=== PATIENT | male | born 1970 | race Caucasian/White ===

== ENCOUNTER 2016-06-01 19:33 | Emergency (ER) | payer OTHER ==
--- NOTE | 2016-06-01 21:50 | REPUSA ---
CLINICAL HISTORY: Edema. COMMENTS: Real time sonography with duplex doppler of the right lower extremity was performed with attention to the major deep venous structures. Evaluation reveals the right common femoral, superficial femoral and popliteal veins to be completely compressible without intraluminal thrombus. There is normal spontaneous phasic flow and augmentation . The greater saphenous/common femoral vein junction is patent. IMPRESSION: No evidence of DVT in right lower extremity. Thank you for your kind referral of this patient.
--- NOTE | 2016-06-01 22:00 | EDDOCDS ---
Physician Documentation [facility] Name: Nitish Quintanilla Age: 45 yrs Sex: Male : 1970 Arrival Date: 06/01/2016 Time: 19:33 Bed PR Private MD: Chelita Camargo Disposition: 06/01/16 21:48 Discharged to Home/Self Care. Impression: Contusion of right foot. - Condition is Stable. - Discharge Instructions: Elastic Bandage and RICE, Foot Contusion. - Medication Reconciliation, Local Pharmacy Hours form. - Follow up: Chelita Camargo; When: As needed; Reason: Recheck today's complaints, Continuance of care. Follow up: Emergency Department; When: As needed; Reason: Worsening of conditions. - Problem is new. - Symptoms are unchanged. Historical: - Allergies: No known drug Allergies; - Home Meds: 1. atenolol 50 mg Oral tab 1 tab once daily 2. Prevacid 15 mg Oral cpDR 1 cap once daily 3. Zyrtec 10 mg Oral tab 1 tab once daily - PMHx: GERD; Hypertension; Seasonal Allergies; - PSHx: skin graft to left foot; Appendectomy; Tonsillectomy; wisdom teeth; right ankle; - Social history: Smoking status: Patient states was never smoker of tobacco. No barriers to communication noted, The patient speaks fluent [place]inean. - Family history: Not pertinent. - : The pt / caregiver states he / she is not on anticoagulants. Home medication list is obtained from the patient. - Exposure Risk Screening:: None identified. Vital Signs: 06/01 19:35 BP 148 / 81; Pulse 55; Resp 18 S; Temp 97.2(O); Pulse Ox 98% on R/A; Weight 133.36 kg / gr2 294.01 lbs (R); Height 6 ft. 2 in. (187.96 cm) (R); Pain 4/10; 21:52 BP 136 / 84 RA Sitting (auto/reg); Pulse 69 MON; Resp 20 S; Temp 98.3(TE); Pulse Ox 96% cln on R/A; Pain 0/10; 19:35 Body Mass Index 37.75 (133.36 kg, 187.96 cm) gr2 MDM: 20:14 US Lower Extremity R/O DVT Ordered. EDMS 20:15 Financial registration complete. gjb 20:52 [facility] Payment Agreement was scanned into [employer] and attached to record. shashi Signatures: Dispatcher [employer] EDMS Dillon Davis PA-C PA-C ar2 Shital Mccallum,RN RN ld5 Patrizia JessicaRN RN af2 Gabriela Noriega The chart was reviewed and I authenticate all verbal orders and agree with the evaluation and treatment provided.Attachments: 20:52 [facility] Payment Agreement gjb MTDD
--- NOTE | 2016-06-01 22:00 | EDDOCDS ---
Nurse's Notes [facility] Name: Nitish Quintanilla Age: 45 yrs Sex: Male : 1970 Arrival Date: 06/01/2016 Time: 19:33 Bed PR2 Private MD: Chelita Camargo Diagnosis: Contusion of right foot Presentation: 06/01 19:38 Presenting complaint: Patient states: swelling of right foot and ankle related to af2 object falling on foot, referred by urgent care for possible blood clot. The patients lower extremity appears normal on examination. Adult Sepsis Screening: The patient does not have new or worsening altered mentation. Patient's respiratory rate is less than 22. Systolic blood pressure is greater than 100. Patient has a qSOFA score of 0- Negative Sepsis Screen. Suicide/Homicide risk assessment- the patient denies having any suicidal and/or homicidal ideations and does not present with any other emotional, behavioral or mental health complaints. Status: Patient is not a legal services manager or dependent. Transition of care: patient was not received from another setting of care. 19:38 Acuity: CHUNG Level 3 af2 19:38 Method Of Arrival: Walkin/Carried/Asstd af2 Triage Assessment: 19:41 General: Appears in no apparent distress, Behavior is appropriate for age, cooperative, af2 pleasant. Pain: Denies pain. Pt Declines HIV testing. Musculoskeletal: Reports swelling to right foot and ankle. Historical: - Allergies: No known drug Allergies; - Home Meds: 1. atenolol 50 mg Oral tab 1 tab once daily 2. Prevacid 15 mg Oral cpDR 1 cap once daily 3. Zyrtec 10 mg Oral tab 1 tab once daily - PMHx: GERD; Hypertension; Seasonal Allergies; - PSHx: skin graft to left foot; Appendectomy; Tonsillectomy; wisdom teeth; right ankle; - Social history: Smoking status: Patient states was never smoker of tobacco. No barriers to communication noted, The patient speaks fluent Nepali. - Family history: Not pertinent. - : The pt / caregiver states he / she is not on anticoagulants. Home medication list is obtained from the patient. - Exposure Risk Screening:: None identified. Screenin:57 Screening information is obtained from the patient. Fall risk: No risks identified. ld5 Assistance ADL's: requires no assistance with activities of daily living. Abuse/DV Screen: The patient / caregiver reports he/she is: not in a situation that causes fear, pain or injury. Nutritional screening: No deficits noted. Advance Directives: There is no active DNR order. home support is adequate. Assessment: 21:57 General: Appears in no apparent distress. General: First contact with pt. Pain: Denies ld5 pain. Neurological: Level of Consciousness is awake, alert. Respiratory: Airway is patent Respiratory effort is even, unlabored. Musculoskeletal: Range of motion intact in all extremities. No deformity noted Signs and Symptoms of Compartment Syndrome: no signs of compartment syndrome. Vital Signs: 19:35 BP 148 / 81; Pulse 55; Resp 18 S; Temp 97.2(O); Pulse Ox 98% on R/A; Weight 133.36 kg gr2 (R); Height 6 ft. 2 in. (187.96 cm) (R); Pain 4/10; 21:52 BP 136 / 84 RA Sitting (auto/reg); Pulse 69 MON; Resp 20 S; Temp 98.3(TE); Pulse Ox 96% cln on R/A; Pain 0/10; 19:35 Body Mass Index 37.75 (133.36 kg, 187.96 cm) gr2 Vitals: 19:35 Log In Time: June 01, 2016 at 19:35. gr2 ED Course: 19:35 Patient visited by Malinda Olivera. gr2 19:35 Chelita Camargo is Private Physician. gr2 19:35 Patient moved to Waiting gr2 19:36 Patient visited by Malinda Olivera. gr2 19:36 Patient moved to Pre RCE gr2 19:40 Triage Initiated af2 19:42 Patient visited by Patrizia Jessica RN. af2 20:07 [facility]. ar2 20:07 Edouard Stratton DO is Attending Physician. ar2 20:07 Patient visited by Dillon Davis PA-C. ar2 20:07 Patient moved to Triage 2 cln 20:13 Patient moved to TR4 mb9 20:52 [facility] Payment Agreement was scanned into [employer] and attached to record. gjb 20:59 Patient moved to Ultrasound dmg 21:23 Patient moved to TR4 dmg 21:44 Patient moved to PR2 / cln 21:48 Chelita Camargo is Referral Physician. ar2 21:52 Patient visited by Mary Franco PCA. cln 21:57 The patient / caregiver is instructed regarding the plan of care and ED course. ld5 21:57 No IV's were initiated during this patient's visit. No procedures done that require ld5 assistance. 21:59 Patient visited by Shital Mccallum RN. ld5 Order Results: There are currently no results for this order. Outcome: 21:48 Discharge ordered by Provider. ar2 21:57 Discharge Assessment: Patient awake, alert and oriented x 3. No cognitive and/or ld5 functional deficits noted. Patient verbalized understanding of disposition instructions. patient administered narcotics - no. The following High Risk Discharge criteria are identified: None. Discharged to home ambulatory. Condition: stable. Discharge instructions given to patient, Instructed on discharge instructions, follow up and referral plans. Demonstrated understanding of instructions, Pt was receptive of discharge instructions/ teaching. No special radiology studies were completed. Property :Personal belongings accompany Pt. 21:58 Patient left the ED. ld5 Signatures: Billie Garcia Aaron, PA-Jameel PA-C ar2 Shital Mccallum,RN RN ld5 Malinda Olivera gr2 Gianfranco Brown,RN RN mb9 Patrizia Jessica RN RN af2 Gabriela Noriega [facility] Mary Franco PCA [employer] cln MTDD
--- NOTE | 2016-06-03 23:00 | EDDOCDS ---
Physician Documentation [facility] Name: Nitish Quintanilla Age: 45 yrs Sex: Male : 1970 Arrival Date: 06/01/2016 Time: 19:33 Bed PR Private MD: Chelita Camargo Disposition: 06/01/16 21:48 Discharged to Home/Self Care. Impression: Contusion of right foot. - Condition is Stable. - Discharge Instructions: Elastic Bandage and RICE, Foot Contusion. - Medication Reconciliation, Local Pharmacy Hours form. - Follow up: Chelita Camargo; When: As needed; Reason: Recheck today's complaints, Continuance of care. Follow up: Emergency Department; When: As needed; Reason: Worsening of conditions. - Problem is new. - Symptoms are unchanged. Historical: - Allergies: No known drug Allergies; - Home Meds: 1. atenolol 50 mg Oral tab 1 tab once daily 2. Prevacid 15 mg Oral cpDR 1 cap once daily 3. Zyrtec 10 mg Oral tab 1 tab once daily - PMHx: GERD; Hypertension; Seasonal Allergies; - PSHx: skin graft to left foot; Appendectomy; Tonsillectomy; wisdom teeth; right ankle; - Social history: Smoking status: Patient states was never smoker of tobacco. No barriers to communication noted, The patient speaks fluent Cymro. - Family history: Not pertinent. - : The pt / caregiver states he / she is not on anticoagulants. Home medication list is obtained from the patient. - Exposure Risk Screening:: None identified. Vital Signs: 06/01 19:35 BP 148 / 81; Pulse 55; Resp 18 S; Temp 97.2(O); Pulse Ox 98% on R/A; Weight 133.36 kg / gr2 294.01 lbs (R); Height 6 ft. 2 in. (187.96 cm) (R); Pain 4/10; 21:52 BP 136 / 84 RA Sitting (auto/reg); Pulse 69 MON; Resp 20 S; Temp 98.3(TE); Pulse Ox 96% cln on R/A; Pain 0/10; 19:35 Body Mass Index 37.75 (133.36 kg, 187.96 cm) gr2 MDM: 20:14 US Lower Extremity R/O DVT Ordered. EDMS 20:15 Financial registration complete. gjb 20:52 [facility] Payment Agreement was scanned into [employer] and attached to record. gjb 06/02 11:24 T-Sheet-- Draft Copy was scanned into [employer] and attached to record. gb Signatures: Dispatcher [employer] EDMS Minal Tracy, Reg Reg gb Dillon Davis, ELLY SANABRIA ar2 Shital MccallumRN RN ld5 Patrizia Jessica RN RN af2 Gabriela Noriega The chart was reviewed and I authenticate all verbal orders and agree with the evaluation and treatment provided.Attachments: 06/01 20:52 [facility] Payment Agreement gjb 06/02 11:24 T-Sheet-- Draft Copy gb Chart Complete MTDD
--- NOTE | 2016-06-03 23:00 | EDDOCDS ---
Physician Documentation [facility] Name: Nitish Quintanilla Age: 45 yrs Sex: Male : 1970 Arrival Date: 06/01/2016 Time: 19:33 Bed PR Private MD: Chelita Camargo Disposition: 06/01/16 21:48 Discharged to Home/Self Care. Impression: Contusion of right foot. - Condition is Stable. - Discharge Instructions: Elastic Bandage and RICE, Foot Contusion. - Medication Reconciliation, Local Pharmacy Hours form. - Follow up: Chelita Camargo; When: As needed; Reason: Recheck today's complaints, Continuance of care. Follow up: Emergency Department; When: As needed; Reason: Worsening of conditions. - Problem is new. - Symptoms are unchanged. Historical: - Allergies: No known drug Allergies; - Home Meds: 1. atenolol 50 mg Oral tab 1 tab once daily 2. Prevacid 15 mg Oral cpDR 1 cap once daily 3. Zyrtec 10 mg Oral tab 1 tab once daily - PMHx: GERD; Hypertension; Seasonal Allergies; - PSHx: skin graft to left foot; Appendectomy; Tonsillectomy; wisdom teeth; right ankle; - Social history: Smoking status: Patient states was never smoker of tobacco. No barriers to communication noted, The patient speaks fluent Luxembourger. - Family history: Not pertinent. - : The pt / caregiver states he / she is not on anticoagulants. Home medication list is obtained from the patient. - Exposure Risk Screening:: None identified. Vital Signs: 06/01 19:35 BP 148 / 81; Pulse 55; Resp 18 S; Temp 97.2(O); Pulse Ox 98% on R/A; Weight 133.36 kg / gr2 294.01 lbs (R); Height 6 ft. 2 in. (187.96 cm) (R); Pain 4/10; 21:52 BP 136 / 84 RA Sitting (auto/reg); Pulse 69 MON; Resp 20 S; Temp 98.3(TE); Pulse Ox 96% cln on R/A; Pain 0/10; 19:35 Body Mass Index 37.75 (133.36 kg, 187.96 cm) gr2 MDM: 20:14 US Lower Extremity R/O DVT Ordered. EDMS 20:15 Financial registration complete. gjb 20:52 [facility] Payment Agreement was scanned into [employer] and attached to record. gjb 06/02 11:24 T-Sheet-- Draft Copy was scanned into [employer] and attached to record. gb Signatures: Dispatcher [employer] EDMS Minal Tracy, Reg Reg gb Dillon Davis, ELLY SANABRIA ar2 Shital MccallumRN RN ld5 Patrizia Jessica RN RN af2 Gabriela Noriega The chart was reviewed and I authenticate all verbal orders and agree with the evaluation and treatment provided.Attachments: 06/01 20:52 [facility] Payment Agreement gjb 06/02 11:24 T-Sheet-- Draft Copy gb Chart Complete MTDD
--- NOTE | 2016-06-03 23:00 | EDDOCDS ---
Nurse's Notes [facility] Name: Nitish Quintanilla Age: 45 yrs Sex: Male : 1970 Arrival Date: 06/01/2016 Time: 19:33 Bed PR2 Private MD: Chelita Camargo Diagnosis: Contusion of right foot Presentation: 06/01 19:38 Presenting complaint: Patient states: swelling of right foot and ankle related to af2 object falling on foot, referred by urgent care for possible blood clot. The patients lower extremity appears normal on examination. Adult Sepsis Screening: The patient does not have new or worsening altered mentation. Patient's respiratory rate is less than 22. Systolic blood pressure is greater than 100. Patient has a qSOFA score of 0- Negative Sepsis Screen. Suicide/Homicide risk assessment- the patient denies having any suicidal and/or homicidal ideations and does not present with any other emotional, behavioral or mental health complaints. Status: Patient is not a senior field service engineer or dependent. Transition of care: patient was not received from another setting of care. 19:38 Acuity: CHUNG Level 3 af2 19:38 Method Of Arrival: Walkin/Carried/Asstd af2 Triage Assessment: 19:41 General: Appears in no apparent distress, Behavior is appropriate for age, cooperative, af2 pleasant. Pain: Denies pain. Pt Declines HIV testing. Musculoskeletal: Reports swelling to right foot and ankle. Historical: - Allergies: No known drug Allergies; - Home Meds: 1. atenolol 50 mg Oral tab 1 tab once daily 2. Prevacid 15 mg Oral cpDR 1 cap once daily 3. Zyrtec 10 mg Oral tab 1 tab once daily - PMHx: GERD; Hypertension; Seasonal Allergies; - PSHx: skin graft to left foot; Appendectomy; Tonsillectomy; wisdom teeth; right ankle; - Social history: Smoking status: Patient states was never smoker of tobacco. No barriers to communication noted, The patient speaks fluent Frisian. - Family history: Not pertinent. - : The pt / caregiver states he / she is not on anticoagulants. Home medication list is obtained from the patient. - Exposure Risk Screening:: None identified. Screenin:57 Screening information is obtained from the patient. Fall risk: No risks identified. ld5 Assistance ADL's: requires no assistance with activities of daily living. Abuse/DV Screen: The patient / caregiver reports he/she is: not in a situation that causes fear, pain or injury. Nutritional screening: No deficits noted. Advance Directives: There is no active DNR order. home support is adequate. Assessment: 21:57 General: Appears in no apparent distress. General: First contact with pt. Pain: Denies ld5 pain. Neurological: Level of Consciousness is awake, alert. Respiratory: Airway is patent Respiratory effort is even, unlabored. Musculoskeletal: Range of motion intact in all extremities. No deformity noted Signs and Symptoms of Compartment Syndrome: no signs of compartment syndrome. Vital Signs: 19:35 BP 148 / 81; Pulse 55; Resp 18 S; Temp 97.2(O); Pulse Ox 98% on R/A; Weight 133.36 kg gr2 (R); Height 6 ft. 2 in. (187.96 cm) (R); Pain 4/10; 21:52 BP 136 / 84 RA Sitting (auto/reg); Pulse 69 MON; Resp 20 S; Temp 98.3(TE); Pulse Ox 96% cln on R/A; Pain 0/10; 19:35 Body Mass Index 37.75 (133.36 kg, 187.96 cm) gr2 Vitals: 19:35 Log In Time: June 01, 2016 at 19:35. gr2 ED Course: 19:35 Patient visited by Malinda Olivera. gr2 19:35 Chelita Camargo is Private Physician. gr2 19:35 Patient moved to Waiting gr2 19:36 Patient visited by Malinda Olivera. gr2 19:36 Patient moved to Pre RCE gr2 19:40 Triage Initiated af2 19:42 Patient visited by Patrizia Jessica RN. af2 20:07 Dillon Davis PA-C is [facility]. ar2 20:07 Edouard Stratton DO is Attending Physician. ar2 20:07 Patient visited by Dillon Davis PA-C. ar2 20:07 Patient moved to Triage 2 cln 20:13 Patient moved to TR4 mb9 20:52 [facility] Payment Agreement was scanned into [employer] and attached to record. gjb 20:59 Patient moved to Ultrasound dmg 21:23 Patient moved to TR4 dmg 21:44 Patient moved to PR2 / cln 21:48 Chelita Camargo is Referral Physician. ar2 21:52 Patient visited by Mary Franco PCA. cln 21:57 The patient / caregiver is instructed regarding the plan of care and ED course. ld5 21:57 No IV's were initiated during this patient's visit. No procedures done that require ld5 assistance. 21:59 Patient visited by Shital Mccallum RN. ld5 22:18 US Lower Extremity R/O DVT Returned. [facility] 06/02 11:24 T-Sheet-- Draft Copy was scanned into [employer] and attached to record. gb Order Results: Radiology Order: US Lower Extremity R/O DVT Test: US Lower Extremity R/O DVT REASON FOR EXAMINATION: Deformity/Swelling; ; CLINICAL HISTORY: Edema.; COMMENTS:; Real time sonography with duplex doppler of the right lower extremity was performed with attention to; the major deep venous structures.; Evaluation reveals the right common femoral, superficial femoral and popliteal veins to be completely; compressible without intraluminal thrombus. There is normal spontaneous phasic flow and augmentation; . The greater saphenous/common femoral vein junction is patent.; IMPRESSION:; No evidence of DVT in right lower extremity.; Thank you for your kind referral of this patient.; ; Outcome: 06/01 21:48 Discharge ordered by Provider. ar2 21:57 Discharge Assessment: Patient awake, alert and oriented x 3. No cognitive and/or ld5 functional deficits noted. Patient verbalized understanding of disposition instructions. patient administered narcotics - no. The following High Risk Discharge criteria are identified: None. Discharged to home ambulatory. Condition: stable. Discharge instructions given to patient, Instructed on discharge instructions, follow up and referral plans. Demonstrated understanding of instructions, Pt was receptive of discharge instructions/ teaching. No special radiology studies were completed. Property :Personal belongings accompany Pt. 21:58 Patient left the ED. ld5 Signatures: Dispatcher [employer] [facility] Billie Garcia Minal Haas, Reg Reg gb Dillon Davis, PA-C PA-C ar2 Shital Mccallum,VIRAJ RN ld5 Malinda Olivera 2 Gianfranco Brown,VIRAJ RN mb9 Patrizia Jessica RN RN af2 Gabriela Noriega, Crystal, DATA CENTER PROJECT MANAGER DATA CENTER PROJECT MANAGER cln Chart Complete MTDD
== END 2016-06-01 21:58 | disposition home or self-care (01) ==
LOC: M ED 19:33
DX: S90.31XA Contusion of right foot, initial encounter (principal); W22.8XXA Striking against or struck by other objects, initial encounter; Y92.89 Other specified places as the place of occurrence of the external cause; Y93.89 Activity, other specified; Y99.8 Other external cause status; K21.9 Gastro-esophageal reflux disease without esophagitis; I10 Essential (primary) hypertension; J30.9 Allergic rhinitis, unspecified; Z79.899 Other long term (current) drug therapy

== ENCOUNTER → 2017-04-14 | Outpatient (CLI) | payer OTHER ==
[2017-04-14 09:48] LABS: ALBUMIN 3.8 GM/DL (3.2-5.2); ALBUMIN/GLOBULIN RATIO 1.31 (1.00-1.93); ALKALINE PHOSPHATASE 73 U/L (45-117); ALT/SGPT 43 U/L (12-78); ANION GAP 4 MEQ/L (8-16); AST/SGOT 28 U/L (7-37); BILIRUBIN,TOTAL 0.5 MG/DL (0.2-1.0); BLOOD UREA NITROGEN 12 MG/DL (7-18); CALCIUM LEVEL 9.4 MG/DL (8.5-10.1); CARBON DIOXIDE LEVEL 29 MEQ/L (21-32); CHLORIDE LEVEL 107 MEQ/L (98-107); CHOLESTEROL LEVEL 189 MG/DL (<200); CREATININE FOR GFR 0.98 MG/DL (0.70-1.30); GLOMERULAR FILTRATION RATE > 60.0 (>60); GLUCOSE, FASTING 100 MG/DL (70-105); POTASSIUM SERUM 4.6 MEQ/L (3.5-5.1); SODIUM LEVEL 140 MEQ/L (136-145); TOTAL PROTEIN 6.7 GM/DL (6.4-8.2); TRIGLYCERIDES LEVEL 78 MG/DL (<150)
== END ==
LOC: M WUC 08:05
PROVIDERS: ATTEND Nurse Practitioner Family
DX: I10 Essential (primary) hypertension (principal)

== ENCOUNTER → 2017-10-24 | Outpatient (CLI) | payer OTHER ==
[2017-10-24 11:15] LABS: ALBUMIN 3.7 GM/DL (3.2-5.2); ALBUMIN/GLOBULIN RATIO 1.16 (1.00-1.93); ALKALINE PHOSPHATASE 78 U/L (45-117); ALT/SGPT 50 U/L (12-78); ANION GAP 6 MEQ/L (8-16); AST/SGOT 29 U/L (7-37); BILIRUBIN,TOTAL 0.5 MG/DL (0.2-1.0); BLOOD UREA NITROGEN 13 MG/DL (7-18); CALCIUM LEVEL 9.2 MG/DL (8.5-10.1); CARBON DIOXIDE LEVEL 25 MEQ/L (21-32); CHLORIDE LEVEL 111 MEQ/L (98-107); CHOLESTEROL LEVEL 172 MG/DL (<200); CREATININE FOR GFR 0.84 MG/DL (0.70-1.30); GLOMERULAR FILTRATION RATE > 60.0 (>60); GLUCOSE, FASTING 99 MG/DL (70-100); HDL CHOLESTEROL 39 MG/DL (>40); LDL CHOLESTEROL 120.4 MG/DL (<100); NON-HDL-C 133 MG/DL; POTASSIUM SERUM 4.4 MEQ/L (3.5-5.1); SODIUM LEVEL 142 MEQ/L (136-145); TOTAL PROTEIN 6.9 GM/DL (6.4-8.2); TRIGLYCERIDES LEVEL 63 MG/DL (<150)
== END ==
LOC: M WUC 09:00
DX: I10 Essential (primary) hypertension (principal); E78.00 Pure hypercholesterolemia, unspecified

== ENCOUNTER → 2018-05-22 | Outpatient (CLI) | payer OTHER ==
[2018-05-22 13:32] LABS: ALBUMIN 3.9 GM/DL (3.2-5.2); ALT/SGPT 53 U/L (12-78); BILIRUBIN,TOTAL 0.5 MG/DL (0.2-1.0); BLOOD UREA NITROGEN 16 MG/DL (7-18); CALCIUM LEVEL 9.9 MG/DL (8.5-10.1); CARBON DIOXIDE LEVEL 25 MEQ/L (21-32); CHLORIDE LEVEL 106 MEQ/L (98-107); CHOLESTEROL LEVEL 207 MG/DL (<200); CHOLESTEROL RISK RATIO 5.594 (<5); CREATININE FOR GFR 0.91 MG/DL (0.70-1.30); GLOMERULAR FILTRATION RATE > 60.0 (>60); GLUCOSE, FASTING 104 MG/DL (70-100); HDL CHOLESTEROL 37 MG/DL (>40); LDL CHOLESTEROL 151 MG/DL (<100); NON-HDL-C 170 MG/DL; POTASSIUM SERUM 4.5 MEQ/L (3.5-5.1); SODIUM LEVEL 138 MEQ/L (136-145); TOTAL PROTEIN 7.2 GM/DL (6.4-8.2); TRIGLYCERIDES LEVEL 93 MG/DL (<150)
== END ==
LOC: M WUC 09:21
PROVIDERS: ATTEND Nurse Practitioner Family
DX: I10 Essential (primary) hypertension (principal); E78.00 Pure hypercholesterolemia, unspecified

== ENCOUNTER → 2018-09-20 | Outpatient (CLI) | payer OTHER ==
[2018-09-20 09:37] LABS: ALBUMIN 3.6 GM/DL (3.2-5.2); ALT/SGPT 40 U/L (12-78); BILIRUBIN,TOTAL 0.5 MG/DL (0.2-1.0); BLOOD UREA NITROGEN 17 MG/DL (7-18); CALCIUM LEVEL 9.2 MG/DL (8.5-10.1); CARBON DIOXIDE LEVEL 27 MEQ/L (21-32); CHLORIDE LEVEL 109 MEQ/L (98-107); CHOLESTEROL LEVEL 171 MG/DL (<200); CHOLESTEROL RISK RATIO 4.621 (<5); CREATININE FOR GFR 0.85 MG/DL (0.70-1.30); GLOMERULAR FILTRATION RATE > 60.0 (>56); GLUCOSE, FASTING 81 MG/DL (70-100); HDL CHOLESTEROL 37 MG/DL (>40); LDL CHOLESTEROL 115 MG/DL (<100); NON-HDL-C 134 MG/DL; POTASSIUM SERUM 4.3 MEQ/L (3.5-5.1); SODIUM LEVEL 141 MEQ/L (136-145); TOTAL PROTEIN 6.9 GM/DL (6.4-8.2); TRIGLYCERIDES LEVEL 97 MG/DL (<150)
== END ==
LOC: M WUC 08:08
PROVIDERS: ATTEND Nurse Practitioner Family
DX: E78.00 Pure hypercholesterolemia, unspecified (principal); I10 Essential (primary) hypertension

== ENCOUNTER → 2019-05-13 | Outpatient (CLI) | payer OTHER ==
[2019-05-13 10:44] LABS: ALBUMIN 3.6 GM/DL (3.2-5.2); ALT/SGPT 41 U/L (12-78); BILIRUBIN,TOTAL 0.6 MG/DL (0.2-1.0); BLOOD UREA NITROGEN 14 MG/DL (7-18); CALCIUM LEVEL 9.6 MG/DL (8.5-10.1); CARBON DIOXIDE LEVEL 29 MEQ/L (21-32); CHLORIDE LEVEL 107 MEQ/L (98-107); CHOLESTEROL LEVEL 177 MG/DL (<200); CHOLESTEROL RISK RATIO 4.538 (<5); GLOMERULAR FILTRATION RATE > 60.0 (>56); GLUCOSE, FASTING 89 MG/DL (70-100); HDL CHOLESTEROL 39 MG/DL (>40); LDL CHOLESTEROL 125 MG/DL (<100); NON-HDL-C 138 MG/DL; POTASSIUM SERUM 4.9 MEQ/L (3.5-5.1); SODIUM LEVEL 140 MEQ/L (136-145); TOTAL PROTEIN 6.9 GM/DL (6.4-8.2); TRIGLYCERIDES LEVEL 67 MG/DL (<150)
== END ==
LOC: M WUC 08:18
PROVIDERS: ATTEND Nurse Practitioner Family
DX: I10 Essential (primary) hypertension (principal); E78.00 Pure hypercholesterolemia, unspecified

== ENCOUNTER → 2020-08-17 | Outpatient (CLI) | payer OTHER ==
[~2020-08-17] MED LIST: ATEN50TA2; CETI-24; PREV30TA3 PO
== END ==
LOC: M LABSMTC 11:38
PROVIDERS: ATTEND Anesthesiology
DX: Z01.812 Encounter for preprocedural laboratory examination (principal); Z20.822 Contact with and (suspected) exposure to COVID-19

== ENCOUNTER 2020-08-22 07:13 | Day surgery (SDC) | payer OTHER ==
[~2020-08-22] VITALS: Ht 188 cm; Wt 140.2 kg
[~2020-08-22 07:13] MED LIST changes: +LIDOCAINE 2% 100MG/5ML SDV (FOR ANES.) As Ordered ONE; +NS 1,000 ML IV ONE; +fentaNYL 100 MCG/2 ML INJECTION (J3010) As Ordered ONE; +propofoL 200 MG/20 ML VIAL As Ordered ONE
--- NOTE | 2020-08-22 08:27 | ROOR ---
Patient Name: Nitish Quintanilla Procedure Date: 08/22/2020 8:11 AM Date of : 1970 Age: 50 Room: [facility] Gender: Male Note Status: Finalized Procedure: Upper Endoscopy + Biopsies Indications: Heartburn, Exclusion of Hanson's esophagus Providers: Santi Latif MD Referring MD: Marian Mccartney Md Requesting Provider: Medicines: Monitored Anesthesia Care Complications: No immediate complications. Procedure: Pre-Anesthesia Assessment: - The heart rate, respiratory rate, oxygen saturations, blood pressure, adequacy of pulmonary ventilation, and response to care were monitored throughout the procedure. The Endoscope was introduced through the mouth, and advanced to the second part of duodenum. The upper GI endoscopy was accomplished without difficulty. The patient tolerated the procedure well. Findings: The Z-line was regular and was found 40 cm from the incisors. Multiple biopsies were obtained with cold forceps for evaluation to rule out Hanson's Esophagus randomly at the gastroesophageal junction. A small hiatal hernia was present. No other significant abnormalities were identified in a careful examination of the stomach. The exam of the duodenum was otherwise normal. Impression: - Z-line regular, 40 cm from the incisors. - Small hiatal hernia. - Multiple biopsies were obtained at the gastroesophageal junction. - The examination was otherwise normal. Recommendation: - Patient has a contact number available for emergencies. The signs and symptoms of potential delayed complications were discussed with the patient. Return to normal activities tomorrow. Written discharge instructions were provided to the patient. - High fiber diet. - Discharge patient to home. - Continue present medications. - Await pathology results. - Telephone GI clinic for pathology results in 1 week. - Repeat upper endoscopy for surveillance based on pathology results. - Return to referring physician. - The findings and recommendations were discussed with the patient. Procedure Code(s): --- Professional --- 99922, Esophagogastroduodenoscopy, flexible, transoral; with biopsy, single or multiple Diagnosis Code(s): --- Professional --- K44.9, Diaphragmatic hernia without obstruction or gangrene R12, Heartburn CPT copyright 2019 [employer]. All rights reserved. The codes documented in this report are preliminary and upon certified real estate appraiser review may be revised to meet current compliance requirements. Santi Latif MD Santi Latif MD 08/22/2020 8:27:15 AM Electronically signed by Santi Latif MD Number of Addenda: 0 Note Initiated On: 08/22/2020 8:11 AM Estimated Blood Loss: Estimated blood loss: none.
--- NOTE | 2020-08-22 08:40 | ROOR ---
Patient Name: Nitish Quintanilla Procedure Date: 08/22/2020 8:28 AM Date of : 1970 Age: 50 Room: [facility], [facility]IN [facility] Gender: Male Note Status: Finalized Procedure: Total Colonoscopy to Cecum Indications: Screening for colorectal malignant neoplasm Providers: Santi Latif MD Referring MD: Marian Mccartney Md Requesting Provider: Medicines: Monitored Anesthesia Care Complications: No immediate complications. Procedure: Pre-Anesthesia Assessment: - The heart rate, respiratory rate, oxygen saturations, blood pressure, adequacy of pulmonary ventilation, and response to care were monitored throughout the procedure. The Colonoscope was introduced through the anus and advanced to the cecum, identified by appendiceal orifice and ileocecal valve. The colonoscopy was performed without difficulty. The patient tolerated the procedure well. The quality of the bowel preparation was excellent. Findings: The perianal and digital rectal examinations were normal. Non-bleeding internal hemorrhoids were found during retroflexion. The hemorrhoids were small and Grade I (internal hemorrhoids that do not prolapse). Scattered small-mouthed diverticula were found in the recto-sigmoid colon, sigmoid colon and descending colon. The exam was otherwise without abnormality on direct and retroflexion views. Impression: - Non-bleeding internal hemorrhoids. - Diverticulosis in the recto-sigmoid colon, in the sigmoid colon and in the descending colon. - The examination was otherwise normal on direct and retroflexion views. - No specimens collected. - The exam was otherwise normal to the cecum. Recommendation: - Patient has a contact number available for emergencies. The signs and symptoms of potential delayed complications were discussed with the patient. Return to normal activities tomorrow. Written discharge instructions were provided to the patient. - High fiber diet. - Discharge patient to home. - Continue present medications. - Repeat colonoscopy in 10 years for screening purposes. - Return to referring physician. - The findings and recommendations were discussed with the patient. Procedure Code(s): --- Professional --- 26993, Colonoscopy, flexible; diagnostic, including collection of specimen(s) by brushing or washing, when performed (separate procedure) Diagnosis Code(s): --- Professional --- Z12.11, Encounter for screening for malignant neoplasm of colon K64.0, First degree hemorrhoids K57.30, Diverticulosis of large intestine without perforation or abscess without bleeding CPT copyright 2019 [employer]. All rights reserved. The codes documented in this report are preliminary and upon school aide review may be revised to meet current compliance requirements. Santi Latif MD Santi Latif MD 08/22/2020 8:39:47 AM Electronically signed by Santi Latif MD Number of Addenda: 0 Note Initiated On: 08/22/2020 8:28 AM Estimated Blood Loss: Estimated blood loss: none.
[2020-08-22 09:08] VITALS: BP 134/81
== END 2020-08-22 09:10 | disposition home or self-care (01) ==
LOC: M OPP 07:13
PROVIDERS: ATTEND Internal Medicine Gastroenterology
DX: Z12.11 Encounter for screening for malignant neoplasm of colon (principal); K57.30 Diverticulosis of large intestine without perforation or abscess without bleeding; K64.0 First degree hemorrhoids; K44.9 Diaphragmatic hernia without obstruction or gangrene; R12 Heartburn; K22.8 Other specified diseases of esophagus; Z79.899 Other long term (current) drug therapy
CPT/HCPCS: 43239; 45378; 88305; J3010

== ENCOUNTER → 2021-03-04 | Outpatient (REF) | payer OTHER ==
[~2021-03-04] MED LIST changes: -LIDOCAINE 2% 100MG/5ML SDV (FOR ANES.) As Ordered ONE; -NS 1,000 ML IV ONE; -fentaNYL 100 MCG/2 ML INJECTION (J3010) As Ordered ONE; -propofoL 200 MG/20 ML VIAL As Ordered ONE
== END ==
LOC: M LAB REF 14:32
PROVIDERS: ATTEND Physician Assistant
DX: C44.41 Basal cell carcinoma of skin of scalp and neck (principal)

== ENCOUNTER → 2022-03-05 | Outpatient (REF) | payer OTHER | LOC: M SFHCDERM 17:14 | PROVIDERS: ATTEND Physician Assistant | DX: D23.30 Other benign neoplasm of skin of unspecified part of face (principal) ==

== ENCOUNTER → 2023-01-19 | Outpatient (CLI) | payer OTHER ==
[2023-01-19 10:36] LABS: BASO # 0.1 10^3/uL (0.0-0.2); BASO % 0.9 % (0.0-1.0); EOS # 0.2 10^3/uL (0.0-0.5); EOS % 2.5 % (0.0-3.0); HEMATOCRIT 47.9 % (42.0-52.0); HEMOGLOBIN 15.4 g/dl (13.5-17.5); LYMPH # 2.2 10^3/uL (1.5-5.0); MEAN CORPUSCULAR HEMOGLOBIN 28.4 pg (27.0-33.0); MEAN CORPUSCULAR HGB CONC 32.2 g/dl (32.0-36.5); MEAN CORPUSCULAR VOLUME 88.2 fl (80.0-96.0); MONO # 0.8 10^3/uL (0.0-0.8); NEUTROPHILS # 3.5 10^3/uL (1.5-8.5); NEUTROPHILS % 52.2 % (36.0-66.0); PLATELET COUNT, AUTOMATED 243 10^3/uL (150-450); RED BLOOD COUNT 5.43 10^6/uL (4.30-6.10); WHITE BLOOD COUNT 6.8 10^3/uL (4.0-10.0)
[2023-01-19 11:04] LABS: HEMOGLOBIN A1c 5.2 % (4.0-6.0)
[2023-01-19 11:10] LABS: ALBUMIN 3.9 G/DL (3.2-5.2); ALKALINE PHOSPHATASE 77 U/L (46-116); ALT/SGPT 52 U/L (7.0-40); AST/SGOT 34 U/L (<34); BILIRUBIN,TOTAL 0.5 MG/DL (0.3-1.2); BLOOD UREA NITROGEN 10 MG/DL (9-23); CALCIUM LEVEL 9.7 MG/DL (8.5-10.1); CARBON DIOXIDE LEVEL 28 MMOL/L (20-31); CHLORIDE LEVEL 105 MMOL/L (98-107); CHOLESTEROL LEVEL 162 MG/DL (<200); CHOLESTEROL RISK RATIO 4.03 (<5); CREATININE FOR GFR 0.83 MG/DL (0.70-1.30); GLOMERULAR FILTRATION RATE > 60.0 (>56); GLUCOSE, FASTING 90 MG/DL (60-100); HDL CHOLESTEROL 40.1 MG/DL (>40); LDL CHOLESTEROL 104.5 MG/DL (<100); NON-HDL-C 121.9 MG/DL; POTASSIUM SERUM 4.3 MMOL/L (3.5-5.1); SODIUM LEVEL 140 MMOL/L (136-145); TRIGLYCERIDES LEVEL 87 MG/DL (<150)
== END ==
LOC: M WUC 08:01
PROVIDERS: ATTEND Family Medicine
DX: Z00.00 Encounter for general adult medical examination without abnormal findings (principal)
CPT/HCPCS: 36415; 80053; 80061; 83036; 85025; G0103

== ENCOUNTER → 2024-07-19 | Outpatient (REF) | payer OTHER | LOC: M SFHCDERM 18:08 | PROVIDERS: ATTEND Physician Assistant | DX: L72.0 Epidermal cyst (principal) ==